=== PATIENT | male | born 1990 | race Two or more races ===

== ENCOUNTER 2024-12-31 12:10 | Emergency (ER) | payer OTHER ==
[~2024-12-31] VITALS: Ht 167.6 cm; Wt 58.1 kg
== END 2024-12-31 17:16 | disposition home or self-care (01) ==
LOC: ER 12:10
DX: S62.634A Displaced fracture of distal phalanx of right ring finger, initial encounter for closed fracture (principal); X58.XXXA Exposure to other specified factors, initial encounter; Y93.59 Activity, other involving other sports and athletics played individually; Y92.89 Other specified places as the place of occurrence of the external cause; Y99.9 Unspecified external cause status